=== PATIENT | male | born 1990 ===

== ENCOUNTER 2016-07-07 19:09 | Emergency (ER) | payer SELFPAY ==
[2016-07-07 19:09] VITALS: BMI 24.7
[2016-07-07 19:19] VITALS: BP 110/96; PULSE 76; RESP 19; TEMP 98.6; O2SAT 96
--- NOTE | 2016-07-07 19:32 | ED PDOC ---
Arrival/HPI - General Chief Complaint: Abnormal Skin Integrity Time Seen by Provider: 07/07/16 19:21 Historian: Patient - History of Present Illness Narrative History of Present Illness (Text): 07/07/16 19:28 25yo male present for evaluation of cyst on his lower back. states he have had the cyst for over a year now, but wants to remove it before summer starts. He denies pain to the area. Denies any other complaint. Past Medical History - Provider Review Nursing Documentation Reviewed: Yes - Infectious Disease Hx of Infectious Diseases: None - Psychiatric Hx Substance Use: No - Anesthesia Hx Anesthesia: No Hx Anesthesia Reactions: No Hx Malignant Hyperthermia: No Family/Social History - Physician Review Nursing Documentation Reviewed: Yes Family/Social History: Unknown Family HX Smoking Status: Light Smoker < 10 Cigarettes Daily Hx Alcohol Use: Yes Frequency of alcohol use: Socially Hx Substance Use: No Hx Substance Use Treatment: No Allergies/Home Meds Allergies/Adverse Reactions: Allergies isoniazid Adverse Reaction (Verified 07/07/16 19:17) RASH Review of Systems - Physician Review All systems were reviewed & negative as marked: Yes - Review of Systems Constitutional: Normal Eyes: Normal ENT: Normal Respiratory: Normal Cardiovascular: Normal Gastrointestinal: Normal Genitourinary Male: Normal Musculoskeletal: Normal Skin: Other (Cyst) Neurological: Normal Endocrine: Normal Hemo/Lymphatic: Normal Psychiatric: Normal Physical Exam Vital Signs Reviewed: Yes Vital Signs Temp Pulse Resp BP Pulse Ox 07/07/16 19:12 98.6 F 76 19 110/96 H 96 Temperature: Afebrile Blood Pressure: Normal Pulse: Regular Respiratory Rate: Normal Appearance: Positive for: Well-Appearing, Non-Toxic, Comfortable Pain Distress: None Mental Status: Positive for: Alert and Oriented X 3 - Systems Exam Head: Present: Atraumatic, Normocephalic Pupils: Present: PERRL Extroacular Muscles: Present: EOMI Conjunctiva: Present: Normal Mouth: Present: Moist Mucous Membranes Neck: Present: Normal Range of Motion Respiratory/Chest: Present: Clear to Auscultation, Good Air Exchange. No: Respiratory Distress, Accessory Muscle Use Cardiovascular: Present: Regular Rate and Rhythm, Normal S1, S2. No: Murmurs Abdomen: Present: Normal Bowel Sounds. No: Tenderness, Distention, Peritoneal Signs Back: Present: Normal Inspection Upper Extremity: Present: Normal Inspection. No: Cyanosis, Edema Lower Extremity: Present: Normal Inspection. No: Edema Neurological: Present: GCS=15, CN II-XII Intact, Speech Normal Skin: Present: Warm, Dry, Normal Color, Other (Approximately 2.0 x 2.ocm nontender cyst noted to right sided lower back ). No: Rashes Psychiatric: Present: Alert, Oriented x 3, Normal Insight, Normal Concentration Disposition/Present on Arrival - Present on Arrival Any Indicators Present on Arrival: No History of DVT/PE: No History of Uncontrolled Diabetes: No Urinary Catheter: No History of Decub. Ulcer: No History Surgical Site Infection Following: None - Disposition Have Diagnosis and Disposition been Completed?: Yes Diagnosis: Cyst Disposition: HOME/ ROUTINE Disposition Time: 19:35 Patient Plan: Discharge Condition: STABLE Additional Instructions: Follow up with a surgeon Return to ED for any new or worsening symptoms Referrals: Montana Anderson MD [Staff Provider] - Follow up with primary
== END 2016-07-07 19:56 | disposition home or self-care (01) ==
LOC: ED 19:09
DX: L72.3 Sebaceous cyst (principal)

== ENCOUNTER 2017-07-29 16:01 | Emergency (ER) | payer OTHER ==
[2017-07-29 16:22] VITALS: BMI 22.7
[2017-07-29 16:29] VITALS: TEMP 98.8
--- NOTE | 2017-07-29 17:02 | ED PDOC ---
Arrival/HPI - General Chief Complaint: Abnormal Skin Integrity Time Seen by Provider: 07/29/17 17:01 Historian: Patient - History of Present Illness Narrative History of Present Illness (Text): you were treated in the ED today for hx of 2-3 years lower right back cyst without increase in size but it's bothering you when you sit or lay back but otherwise without any pain/nausea/vomiting/headache/dizziness/difficulty breathing/chest pain/abdomen pain/numbness/tingling/loss of limb function/pain with urination. Time/Duration: Other (2-3 years) Symptom Onset: Gradual Symptom Course: Unchanged Quality: Other (no pain) Activities at Onset: Rest Context: Sitting Past Medical History - Provider Review Nursing Documentation Reviewed: Yes - Travel History Have you recently traveled outside [place] w/in the past 3 mons?: No - Infectious Disease Hx of Infectious Diseases: None - Cardiac Hx Cardiac Disorders: No - Pulmonary Hx Respiratory Disorders: Yes Hx Tuberculosis: Yes - Neurological Hx Neurological Disorder: No - HEENT Hx HEENT Disorder: No - Renal Hx Renal Disorder: No - Endocrine/Metabolic Hx Endocrine Disorders: No - Hematological/Oncological Hx Blood Disorders: No - Integumentary Hx Dermatological Disorder: No - Musculoskeletal/Rheumatological Hx Musculoskeletal Disorders: No - Gastrointestinal Hx Gastrointestinal Disorders: No - Genitourinary/Gynecological Hx Genitourinary Disorders: No - Psychiatric Hx Psychophysiologic Disorder: No Hx Substance Use: No - Anesthesia Hx Anesthesia: No Hx Anesthesia Reactions: No Hx Malignant Hyperthermia: No Family/Social History - Physician Review Nursing Documentation Reviewed: Yes Family/Social History: Unknown Family HX Smoking Status: Light Smoker < 10 Cigarettes Daily Hx Alcohol Use: Yes Frequency of alcohol use: Socially Hx Substance Use: No Hx Substance Use Treatment: No Allergies/Home Meds Allergies/Adverse Reactions: Allergies isoniazid Adverse Reaction (Verified 07/29/17 16:22) RASH Home Medications: Home Meds Medication Instructions Recorded Confirmed No Known Home Med 07/29/17 07/29/17 Review of Systems - Review of Systems Constitutional: Normal Eyes: Normal ENT: Normal Respiratory: Normal Cardiovascular: Normal Gastrointestinal: Normal Genitourinary Male: Normal Musculoskeletal: Normal Skin: Other (cyst) Neurological: Normal Endocrine: Normal Hemo/Lymphatic: Normal Psychiatric: Normal Physical Exam Vital Signs Reviewed: Yes Vital Signs Temp Pulse Resp BP Pulse Ox 07/29/17 16:28 98.8 F 82 18 113/68 96 Temperature: Afebrile Blood Pressure: Normal Pulse: Regular Respiratory Rate: Normal Appearance: Positive for: Well-Appearing, Non-Toxic, Comfortable Pain Distress: None Mental Status: Positive for: Alert and Oriented X 3 - Systems Exam Head: Present: Atraumatic, Normocephalic Pupils: Present: PERRL Extroacular Muscles: Present: EOMI Conjunctiva: Present: Normal Ears: Present: Normal Mouth: Present: Moist Mucous Membranes Pharnyx: Present: Normal Nose (External): Present: Atraumatic Nose (Internal): Present: Normal Inspection Neck: Present: Normal Range of Motion Respiratory/Chest: Present: Clear to Auscultation, Good Air Exchange Cardiovascular: Present: Regular Rate and Rhythm Abdomen: No: Tenderness, Distention, Normal Bowel Sounds, Peritoneal Signs, Rebound, Guarding, McBurney's Point Tender, Rovsing's Sign Present, Hernias, Feeding Tubes, Ostomy Tubes, Mass/Organomegaly, Scars, Other Back: Present: Other (see skin) Upper Extremity: Present: Normal Inspection Lower Extremity: Present: Normal Inspection Neurological: Present: GCS=15, CN II-XII Intact, Speech Normal, Motor Func Grossly Intact Skin: Present: Warm, Other (right lower back 8cm cyst/fluctuance wo crepitus and is mobile and non-tender wo erythema thus no acute sign of infection.) Medical Decision Making ED Course and Treatment: 07/29/17 17:23 you were treated in the ED today for hx of 2-3 years lower right back cyst without increase in size but it's bothering you when you sit or lay back but otherwise without any pain/nausea/vomiting/headache/dizziness/difficulty breathing/chest pain/abdomen pain/numbness/tingling/loss of limb function/pain with urination. You were otherwise breathing easily, smiling and talking easily , good strength/sensation, walking easily, clear lungs, no abdomen tenderness, right lower back enlarged area of swelling without redness and otherwise mobile/ fluid without tenderness, no fever temp 98.8, stable heart rate 82, stable breathing rate 18, excellent oxygen level 98% room air, stable blood pressure 113/68 which we recommend repeat in 2-3 days primary care office to determine further treatment, observation done in the ED with improvement, had a long discussion regarding ultrasound evaluation at this time but you refused and stated you didn't want to wait and cautioned for complications but you stated it has been there for 2-3 yeas and you wanted referral information to the clinic and thus you wanted to go home. 1. Recommend follow-up primary care 2 days to review symptoms, ultrasound evaluation of cyst and surgery referral to ensure no complications/cancer development. 2. If any worsening pain, fever, chills, nausea, vomiting, difficulty breathing, numbness, loss of limb function , pain with urination or any medical condition then return to the ED. 07/29/17 17:23 Reassessment Condition: Re-examined, Improved Disposition/Present on Arrival - Present on Arrival Any Indicators Present on Arrival: No History of DVT/PE: No History of Uncontrolled Diabetes: No Urinary Catheter: No History of Decub. Ulcer: No History Surgical Site Infection Following: None - Disposition Have Diagnosis and Disposition been Completed?: Yes Diagnosis: Cyst Disposition Time: 17:23 Patient Plan: Discharge Condition: IMPROVED Additional Instructions: you were treated in the ED today for hx of 2-3 years lower right back cyst without increase in size but it's bothering you when you sit or lay back but otherwise without any pain/nausea/vomiting/headache/dizziness/difficulty breathing/chest pain/abdomen pain/numbness/tingling/loss of limb function/pain with urination. You were otherwise breathing easily, smiling and talking easily , good strength/sensation, walking easily, clear lungs, no abdomen tenderness, right lower back enlarged area of swelling without redness and otherwise mobile/ fluid without tenderness, no fever temp 98.8, stable heart rate 82, stable breathing rate 18, excellent oxygen level 98% room air, stable blood pressure 113/68 which we recommend repeat in 2-3 days primary care office to determine further treatment, observation done in the ED with improvement, had a long discussion regarding ultrasound evaluation at this time but you refused and stated you didn't want to wait and cautioned for complications but you stated it has been there for 2-3 yeas and you wanted referral information to the clinic and thus you wanted to go home. 1. Recommend follow-up primary care 2 days to review symptoms, ultrasound evaluation of cyst and surgery referral to ensure no complications/cancer development. 2. If any worsening pain, fever, chills, nausea, vomiting, difficulty breathing, numbness, loss of limb function , pain with urination or any medical condition then return to the ED. Referrals: Johnathan Tobar, [Primary Care Provider] - Follow up with primary [facility] [place] [Outside] - Follow up with primary [facility] [Outside] - Follow up with primary Tyler Camarillo MD [Medical Doctor] - Follow up with primary Forms: [employer] ([place])
[2017-07-29 19:53] VITALS: BP 117/80; PULSE 70; RESP 17; O2SAT 100
== END 2017-07-29 19:00 | disposition home or self-care (01) ==
LOC: ED 16:01
DX: L72.9 Follicular cyst of the skin and subcutaneous tissue, unspecified (principal); F17.210 Nicotine dependence, cigarettes, uncomplicated